=== PATIENT | female | born 1975 | race Caucasian/White ===

== ENCOUNTER 2017-09-18 11:49 | Outpatient (CLI) | payer OTHER | END 2017-09-18 15:51 | disposition home or self-care (01) | LOC: RAD 11:49 | DX: C79.51 Secondary malignant neoplasm of bone (principal) ==

== ENCOUNTER 2018-09-04 11:11 | Outpatient (CLI) | payer OTHER | END 2018-09-04 16:17 | disposition home or self-care (01) | LOC: EKG 11:11 | DX: Z01.810 Encounter for preprocedural cardiovascular examination (principal) ==

== ENCOUNTER 2019-12-01 20:10 | Outpatient (CLI) | payer OTHER | END 2019-12-01 20:25 | disposition home or self-care (01) | LOC: RAD 20:10 | PROVIDERS: ATTEND Orthopaedic Surgery | DX: C50.819 Malignant neoplasm of overlapping sites of unspecified female breast (principal); M89.8X0 Other specified disorders of bone, multiple sites ==

== ENCOUNTER → 2020-07-08 15:00 | Outpatient (CLI) | payer OTHER | END | disposition home or self-care (01) | LOC: PPH VACUNA 15:00 | DX: Z23 Encounter for immunization (principal) ==

== ENCOUNTER → 2020-07-29 | Outpatient (CLI) | payer OTHER | END | disposition home or self-care (01) | LOC: PPH VACUNA | DX: Z23 Encounter for immunization (principal) ==

== ENCOUNTER 2020-10-16 12:40 | Outpatient (CLI) | payer OTHER | END 2020-10-16 13:19 | disposition home or self-care (01) | LOC: RAD 12:40 | PROVIDERS: ATTEND Obstetrics & Gynecology Gynecology | DX: M54.5 Low back pain (principal); R10.2 Pelvic and perineal pain ==

== ENCOUNTER 2020-11-15 12:33 | Outpatient (CLI) | payer OTHER | END 2020-11-15 13:58 | disposition home or self-care (01) | LOC: TOM 12:33 | PROVIDERS: ATTEND Surgery | DX: R10.84 Generalized abdominal pain (principal); K56.699 Other intestinal obstruction unspecified as to partial versus complete obstruction ==

== ENCOUNTER 2020-11-21 00:29 | Emergency (ER) | payer OTHER ==
[~2020-11-21] VITALS: Ht 157.5 cm; Wt 65.8 kg
[2020-11-21] MEDS ORDERED: DURAGESIC1 EAC1 (00:33)
[2020-11-21] MEDS ORDERED: DEXILANT30 MG (00:33)
[2020-11-21] MEDS ORDERED: XARELTO20 MG (00:33)
== END 2020-11-21 14:06 | disposition home or self-care (01) ==
LOC: ER 00:29
DX: R22.42 Localized swelling, mass and lump, left lower limb (principal); M25.48 Effusion, other site; I82.512 Chronic embolism and thrombosis of left femoral vein; N39.0 Urinary tract infection, site not specified; M54.5 Low back pain; D64.9 Anemia, unspecified; Z79.01 Long term (current) use of anticoagulants

== ENCOUNTER 2020-12-30 08:00 | Outpatient (CLI) | payer OTHER ==
[~2020-12-30 08:00] MED LIST: DEXILANT30 MG; DURAGESIC1 EAC1; XARELTO20 MG
== END 2020-12-30 08:30 | disposition home or self-care (01) ==
LOC: PPH VACUNA 08:00
DX: Z23 Encounter for immunization (principal)

== ENCOUNTER 2021-01-10 17:14 | Inpatient (IN) | payer OTHER ==
[~2021-01-10] VITALS: Ht 5.1 cm; Wt 5.0 kg
[2021-01-12] MEDS ORDERED: CLORAZEPATE D3.75 MG (08:42)
[2021-01-12] MEDS ORDERED: GABAPENTIN100 M2 (08:43)
[2021-01-12] MEDS ORDERED: ONDANSETRON HCL8 MG (08:43)
[2021-01-12] MEDS ORDERED: LORAZEPAM2 MG (08:43)
[2021-01-12] MEDS ORDERED: ESCITALOPRAM OXA5 MG (08:43)
[2021-01-12] MEDS ORDERED: DIPHENHYDR50 MG/1 M1 (08:43)
[2021-01-12] MEDS ORDERED: ONDANSETRON ODT8 MG (08:43)
[2021-01-12] MEDS ORDERED: PENTOXIFYLLINE400 MG (08:43)
[2021-01-12] MEDS ORDERED: CLORAZEPATE D3.75 MG PO (14:16)
[2021-01-12] MEDS ORDERED: XARELTO10 MG PO (14:16)
[2021-01-12] MEDS ORDERED: TRAMADOL HCL50 MG PO (14:16)
[2021-01-12] MEDS ORDERED: ONDANSETRON HCL8 MG PO (14:16)
[2021-01-12] MEDS ORDERED: PENTOXIFYLLINE400 MG PO (14:16)
[2021-01-12] MEDS ORDERED: POM (MEDICAMENTO EN PO ×2 (14:16)
[2021-01-12] MEDS ORDERED: Neurin-Sl Tablet Sl SL (14:16)
[2021-01-12] MEDS ORDERED: DURAGESIC1 EAC1 TOP (14:16)
[2021-01-12] MEDS ORDERED: LORAZEPAM2 MG PO (14:16)
[2021-01-12] MEDS ORDERED: DEXILANT30 MG PO (14:16)
[2021-01-12] MEDS ORDERED: GABAPENTIN100 MG PO (14:16)
== END 2021-01-12 16:46 | disposition home or self-care (01) | DRG 812 ==
LOC: SEC-K 17:14 → SURH 17:14 → SURG 17:46 → SURH 20:59
PROVIDERS: ADMIT Internal Medicine Geriatric Medicine; ATTEND Internal Medicine Geriatric Medicine
PROC: 30233R1 Transfusion of Nonautologous Platelets into Peripheral Vein, Percutaneous Approach (ICD-10-PCS; principal; 2021-01-11)
PROC: 30233N1 Transfusion of Nonautologous Red Blood Cells into Peripheral Vein, Percutaneous Approach (ICD-10-PCS; 2021-01-11)
DX: D64.9 Anemia, unspecified (principal); D69.6 Thrombocytopenia, unspecified; C50.919 Malignant neoplasm of unspecified site of unspecified female breast

== ENCOUNTER 2021-02-21 10:27 | Inpatient (IN) | payer OTHER ==
[~2021-02-21] VITALS: Ht 157.5 cm; Wt 648.3 kg
[~2021-02-21 10:27] MED LIST changes: +CLORAZEPATE D3.75 MG; +CLORAZEPATE D3.75 MG PO; +DEXILANT30 MG PO; +DIPHENHYDR50 MG/1 M1; +DURAGESIC1 EAC1 TOP; +ESCITALOPRAM OXA5 MG; +GABAPENTIN100 M2; +GABAPENTIN100 MG PO; +LORAZEPAM2 MG; +LORAZEPAM2 MG PO; +Neurin-Sl Tablet Sl SL; +ONDANSETRON HCL8 MG; +ONDANSETRON HCL8 MG PO; +ONDANSETRON ODT8 MG; +PENTOXIFYLLINE400 MG; +PENTOXIFYLLINE400 MG PO; +POM (MEDICAMENTO EN PO; +TRAMADOL HCL50 MG PO; +XARELTO10 MG PO
[2021-02-22] MEDS ORDERED: RESTASIS1 EACH (07:57)
[2021-02-22] MEDS ORDERED: DEXILANT30 MG PO (11:23)
[2021-02-22] MEDS ORDERED: POM (MEDICAMENTO EN PO (11:23)
[2021-02-22] MEDS ORDERED: XARELTO10 MG PO (11:23)
[2021-02-22] MEDS ORDERED: GABAPENTIN100 MG PO (11:23)
[2021-02-22] MEDS ORDERED: TRAMADOL HCL50 MG PO (11:23)
[2021-02-22] MEDS ORDERED: PENTOXIFYLLINE400 MG PO (11:23)
[2021-02-22] MEDS ORDERED: ONDANSETRON HCL8 MG PO (11:23)
[2021-02-22] MEDS ORDERED: DURAGESIC1 EAC1 TOP (11:23)
[2021-02-22] MEDS ORDERED: Neurin-Sl Tablet Sl SL (11:23)
== END 2021-02-22 11:59 | disposition home or self-care (01) | DRG 812 ==
LOC: SURG-SUITE 10:27
PROVIDERS: ADMIT Internal Medicine Geriatric Medicine; ATTEND Internal Medicine Geriatric Medicine
PROC: 30233N1 Transfusion of Nonautologous Red Blood Cells into Peripheral Vein, Percutaneous Approach (ICD-10-PCS; principal; 2021-02-21)
PROC: 8E0ZXY6 Isolation (ICD-10-PCS; 2021-02-21)
DX: D64.9 Anemia, unspecified (principal); D69.6 Thrombocytopenia, unspecified; Z20.822 Contact with and (suspected) exposure to COVID-19; C50.919 Malignant neoplasm of unspecified site of unspecified female breast

== ENCOUNTER 2021-04-14 11:51 | Inpatient (IN) | payer OTHER ==
[~2021-04-14] VITALS: Ht 157.5 cm; Wt 61.2 kg
[~2021-04-14 11:51] MED LIST changes: +RESTASIS1 EACH
== END 2021-04-15 17:21 | disposition home or self-care (01) | DRG 599 ==
LOC: MEDJ 11:51
PROVIDERS: ADMIT Internal Medicine Geriatric Medicine; ATTEND Internal Medicine Geriatric Medicine
PROC: 30233N1 Transfusion of Nonautologous Red Blood Cells into Peripheral Vein, Percutaneous Approach (ICD-10-PCS; principal; 2021-04-15)
DX: C50.919 Malignant neoplasm of unspecified site of unspecified female breast (principal); D63.0 Anemia in neoplastic disease; D64.9 Anemia, unspecified

== ENCOUNTER 2021-05-19 13:35 | Inpatient (IN) | payer OTHER ==
[~2021-05-19] VITALS: Ht 157.5 cm; Wt 59.0 kg
[2021-05-22] MEDS ORDERED: DEXAMETHASO4 MG/1 M1 (08:23)
[2021-05-22] MEDS ORDERED: CLONAZEPAM0.5 MG (08:23)
[2021-05-22] MEDS ORDERED: ABANEU-SL TABL1 EACH (08:23)
[2021-05-22] MEDS ORDERED: HYDROCHLOROTH12.5 MG (08:23)
== END 2021-05-22 12:35 | disposition home or self-care (01) | DRG 812 ==
LOC: SURH 13:35 → SEC-K 13:35 → SURH 14:30
PROVIDERS: ADMIT Internal Medicine Geriatric Medicine; ATTEND Internal Medicine Geriatric Medicine
PROC: 30233N1 Transfusion of Nonautologous Red Blood Cells into Peripheral Vein, Percutaneous Approach (ICD-10-PCS; principal; 2021-05-19)
PROC: 8E0ZXY6 Isolation (ICD-10-PCS; 2021-05-19)
DX: D64.9 Anemia, unspecified (principal); C79.81 Secondary malignant neoplasm of breast; D84.9 Immunodeficiency, unspecified; I82.509 Chronic embolism and thrombosis of unspecified deep veins of unspecified lower extremity; D69.6 Thrombocytopenia, unspecified

== ENCOUNTER 2021-06-19 13:09 | Inpatient (IN) | payer OTHER ==
[~2021-06-19] VITALS: Ht 157.5 cm; Wt 59.0 kg
[~2021-06-19 13:09] MED LIST changes: +ABANEU-SL TABL1 EACH; +CLONAZEPAM0.5 MG; +DEXAMETHASO4 MG/1 M1; +HYDROCHLOROTH12.5 MG
[2021-06-20] MEDS ORDERED: ELIQUIS5 MG PO (12:51)
[2021-06-20] MEDS ORDERED: TRAMADOL HCL50 MG PO (12:54)
[2021-06-20] MEDS ORDERED: [UNRECOGNIZED DRUG - OTHER] TD (12:54)
[2021-06-20] MEDS ORDERED: PANTOPRAZOLE SO40 MG PO (12:55)
[2021-06-20] MEDS ORDERED: ONDANSETRON HCL8 MG PO (12:55)
[2021-06-20] MEDS ORDERED: GABAPENTIN100 MG PO (12:57)
[2021-06-20] MEDS ORDERED: ABANEU-SL TABL1 EACH SL (12:57)
[2021-06-20] MEDS ORDERED: LEXAPRO PO (13:02)
== END 2021-06-20 19:04 | disposition home or self-care (01) | DRG 815 ==
LOC: SURG-SUITE 13:09
PROVIDERS: ADMIT Internal Medicine Geriatric Medicine; ATTEND Internal Medicine Geriatric Medicine
PROC: 8E0ZXY6 Isolation (ICD-10-PCS; principal; 2021-06-19)
PROC: 30233N1 Transfusion of Nonautologous Red Blood Cells into Peripheral Vein, Percutaneous Approach (ICD-10-PCS; 2021-06-19)
DX: D84.89 Other immunodeficiencies (principal); I82.402 Acute embolism and thrombosis of unspecified deep veins of left lower extremity; C79.81 Secondary malignant neoplasm of breast; G89.3 Neoplasm related pain (acute) (chronic); D63.0 Anemia in neoplastic disease

== ENCOUNTER 2021-07-01 00:55 | Inpatient (IN) | payer OTHER ==
[~2021-07-01] VITALS: Ht 157.5 cm; Wt 59.0 kg
[~2021-07-01 00:55] MED LIST changes: +ABANEU-SL TABL1 EACH SL; +ELIQUIS5 MG PO; +LEXAPRO PO; +PANTOPRAZOLE SO40 MG PO; +[UNRECOGNIZED DRUG - OTHER] TD
[2021-07-02] MEDS ORDERED: INTEGRA F CAPS1 EACH PO (13:17)
[2021-07-02] MEDS ORDERED: ELIQUIS5 MG PO (13:17)
[2021-07-02] MEDS ORDERED: FENTANYL1 EAC7 TD (13:17)
[2021-07-02] MEDS ORDERED: PANTOPRAZOLE SO40 MG PO (13:17)
[2021-07-02] MEDS ORDERED: GABAPENTIN300 MG PO (13:17)
[2021-07-02] MEDS ORDERED: ABANEU-SL TABL1 EACH SL (13:17)
[2021-07-02] MEDS ORDERED: LORAZEPAM1 MG PO (13:17)
[2021-07-02] MEDS ORDERED: LEXAPRO PO (13:17)
[2021-07-02] MEDS ORDERED: FENTANYL1 EAC4 TD (13:17)
[2021-07-02] MEDS ORDERED: GABAPENTIN100 MG PO (13:17)
[2021-07-02] MEDS ORDERED: TRAMADOL HCL50 MG PO (13:17)
== END 2021-07-02 13:47 | disposition home or self-care (01) | DRG 598 ==
LOC: ER 00:55 → OB/GYN 06:49 → SURG-SUITE 06:49
PROVIDERS: ADMIT Internal Medicine Geriatric Medicine; ATTEND Internal Medicine Geriatric Medicine
PROC: 30233N1 Transfusion of Nonautologous Red Blood Cells into Peripheral Vein, Percutaneous Approach (ICD-10-PCS; principal; 2021-07-01)
DX: C79.81 Secondary malignant neoplasm of breast (principal); I82.402 Acute embolism and thrombosis of unspecified deep veins of left lower extremity; D63.0 Anemia in neoplastic disease; G89.3 Neoplasm related pain (acute) (chronic); Z20.822 Contact with and (suspected) exposure to COVID-19